=== PATIENT | female | born 1985 | race Caucasian/White ===

== ENCOUNTER 2017-03-26 01:38 | Emergency (ER) | payer BC ==
[~2017-03-26] VITALS: Ht 160 cm; Wt 81.2 kg
[~2017-03-26 01:38] MED LIST: CARAFATE1 GM PO; CATAPRES0.1 MG PO; CLEOCIN300 MG; DOXAZOSIN MESYLA4 MG PO; HYDROCODON-ACE1 EAC7 PO; HYDROCODON-ACE1 EACH PO; LAMICTAL25 MG PO; PRILOSEC20 MG PO; VYVANSE40 MG PO; WELLBUTRIN XL300 MG; ZANTAC150 MG PO; ZOFRAN4 MG PO
[2017-03-26 02:34] VITALS: BP 156/100
== END 2017-03-26 02:36 | disposition home or self-care (01) ==
LOC: EXP 01:38 → EME 01:38 → EXP 02:36
PROC: 3E0T3BZ Introduction of Anesthetic Agent into Peripheral Nerves and Plexi, Percutaneous Approach (ICD-10-PCS; principal; 2017-03-26)
DX: K08.89 Other specified disorders of teeth and supporting structures (principal); Z88.0 Allergy status to penicillin
CPT/HCPCS: 99281; 99284

== ENCOUNTER 2017-06-26 19:52 | Emergency (ER) | payer BC ==
[~2017-06-26] VITALS: Ht 160 cm; Wt 75.8 kg
[2017-06-26] MEDS ORDERED: PERCOCET 5/31 TABLET PO (23:46)
[2017-06-27 00:07] VITALS: BP 124/70
== END 2017-06-27 00:07 | disposition home or self-care (01) ==
LOC: EME 19:52
DX: M54.2 Cervicalgia (principal); R51 Headache; R11.0 Nausea; Z87.442 Personal history of urinary calculi
CPT/HCPCS: 99281; 99284; J1885; J2060

== ENCOUNTER 2017-06-30 19:37 | Emergency (ER) | payer BC ==
[~2017-06-30] VITALS: Ht 160 cm; Wt 76.5 kg
[~2017-06-30 19:37] MED LIST changes: +PERCOCET 5/31 TABLET PO
[2017-06-30 21:13] LABS: HEMATOCRIT 42.6 % (36.0-46.0); HEMOGLOBIN 14.9 G/DL (11.9-15.5); MCH 30.7 PG (29.0-34.0); MCV 87.7 FL (83-99); PLATELET COUNT 400 K/uL (156-360); RBC DIS.WIDTH-CV 11.9 % (11.8-14.6); RBC DIS.WIDTH-SD 37.7 % (39-53); RED BLOOD COUNT 4.86 M/uL (3.80-5.20); WHITE BLOOD COUNT 12.1 K/uL (4.1-10.2)
[2017-06-30 21:21] LABS: ALBUMIN 4.1 g/dL (3.2-4.8)
[2017-06-30 21:21] LABS: APPEARANCE CLEAR ((CLEAR)); BILIRUBIN NEGATIVE; BLOOD NEGATIVE; COLOR YELLOW ((YELLOW)); GLUCOSE (STRIP) NEGATIVE; KETONES NEGATIVE; LEUKOCYTES NEGATIVE; NITRITE NEGATIVE; PROTEIN (STRIP) NEGATIVE; SPECIFIC GRAVITY 1.027 (1.000-1.030); UROBILINOGEN 0.2 MG/DL (0.2-1.0)
[2017-06-30 21:22] LABS: CHLORIDE 103 mEq/L (99-109); POTASSIUM 3.1 mEq/L (3.7-5.4); SODIUM 139 mEq/L (136-147)
[2017-06-30 21:24] LABS: GLUCOSE 97 mg/dL (70-99); TOTAL PROTEIN 6.7 g/dL (6.4-8.3)
[2017-06-30 21:26] LABS: TOTAL BILIRUBIN 0.5 mg/dL (0.0-1.0)
[2017-06-30 21:27] LABS: ALKALINE PHOSPHATASE 48 IU/L (3-129)
[2017-06-30 21:28] LABS: CREATININE 0.7 mg/dL (0.6-1.3); GFR ESTIMATE (CALCULATED) > 59 mL/min/
[2017-06-30 21:29] LABS: AST (GOT) 11 IU/L (2-34); UREA NITROGEN (BUN) 22 mg/dL (9-23)
[2017-06-30 21:30] LABS: ALT (GPT) 15 IU/L (3-49)
[2017-06-30 21:31] LABS: LIPASE 18 U/L (1.0-51.0)
[2017-06-30 21:37] LABS: QUANTITATIVE HCG < 4.0 MIU/ML
[2017-06-30] MEDS ORDERED: ZOFRAN4 MG PO (22:17)
[2017-06-30] MEDS ORDERED: BENTYL10 MG PO (22:17)
[2017-06-30 22:42] VITALS: BP 134/86
== END 2017-06-30 22:44 | disposition home or self-care (01) ==
LOC: EME 19:37
PROVIDERS: Physician Assistant
DX: R10.84 Generalized abdominal pain (principal); E87.6 Hypokalemia; M41.86 Other forms of scoliosis, lumbar region; F32.9 Major depressive disorder, single episode, unspecified; Z79.891 Long term (current) use of opiate analgesic; Z87.442 Personal history of urinary calculi; Z90.49 Acquired absence of other specified parts of digestive tract; Z88.0 Allergy status to penicillin
CPT/HCPCS: 80053; 81003; 83690; 84702; 85027